=== PATIENT | female | born 2000 | race African-American/Black ===

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

== ENCOUNTER 2019-01-09 18:47 | Observation (INO) | payer OTHER ==
[2019-01-09] MEDS ORDERED: IV RINGERS,LACTATED 1000ML 1,000 ML IV SCH (18:59)
[2019-01-09 19:10] LABS: BILIRUBIN,URINE NEGATIVE (NEG); CLARITY,URINE CLOUDY; COLOR,URINE YELLOW; NITRITE,URINE NEGATIVE (NEG); PH,URINE 6.5; PROTEIN,URINE NEGATIVE (NEG-TRACE)
[2019-01-09 19:19] LABS: BACTERIA,URINE FEW /HPF (0-FEW); RBC,URINE 0 /HPF (0-2); SQUAMOUS EPITHELIAL CELL,UR MOD /LPF; WBC,URINE >40 /HPF (0-4)
[2019-01-09 19:20] LABS: BARBITURATES NEG (NEG); BENZODIAZEPINES NEG (NEG); CANNABINOIDS NEG (NEG); COCAINE NEG (NEG); METHADONE NEG (NEG); OPIATES NEG (NEG); PHENCYCLIDINE NEG (NEG)
[2019-01-09 19:27] LABS: AMPHETAMINE/METHAMPHETAMINE NEG (NEG)
== END 2019-01-09 20:00 | disposition home or self-care (01) ==
LOC: 3 SO LND 18:47
PROVIDERS: ADMIT Specialist; ATTEND Specialist
DX: O26.893 Other specified pregnancy related conditions, third trimester (principal); R19.7 Diarrhea, unspecified; R10.30 Lower abdominal pain, unspecified; Z3A.37 37 weeks gestation of pregnancy
CPT/HCPCS: 80307; 81001; 87086; G0379

== ENCOUNTER 2019-01-27 12:14 | Inpatient (IN) | payer OTHER ==
[~2019-01-27] VITALS: Ht 162.6 cm; Wt 84.8 kg
[2019-01-27] MEDS ORDERED: ZOLPIDEM 5 MG TABLET. PO PRN (12:30)
[2019-01-27] MEDS ORDERED: ONDANSETRON PF 4 MG/2 ML VIAL. IV PRN (12:30)
[2019-01-27] MEDS ORDERED: BUTORPHANOL 2 MG/ML VIAL. IV PRN (12:30)
[2019-01-27] MEDS ORDERED: DOCUSATE SODIUM 283 MG/5 ML ENEMA. PR PRN (12:30)
[2019-01-27] MEDS ORDERED: OXYTOCIN 30 UNIT/500 ML PREMIX 500 ML IV PRN (12:30)
[2019-01-27] MEDS ORDERED: LIDOCAINE 1% PF 30 ML VIAL. INJ PRN (12:30)
[2019-01-27] MEDS ORDERED: CITRIC ACID/SODIUM CITRATE 30 ML SOLUTION. PO PRN (12:30)
[2019-01-27] MEDS ORDERED: TERBUTALINE 1 MG/ML VIAL. SQ PRN (12:30)
[2019-01-27] MEDS ORDERED: fentaNYL PF VIAL 100 MCG/2 ML VIAL IV PRN (12:30)
[2019-01-27] MEDS ORDERED: 0.9 % SODIUM CHLORIDE 10 ML DISP.SYRIN. IV PRN (12:30)
[2019-01-27] MEDS ORDERED: ACETAMINOPHEN 325 MG TABLET. PO PRN (12:30)
[2019-01-27] MEDS ORDERED: DINOPROSTONE 10 MG SUPP.VAG VG ONE (12:30)
[2019-01-27] MEDS ORDERED: AMPICILLIN SODIUM 2 GM in IV NORMAL SALINE 100ML 100 ML IV ONE (12:30)
[2019-01-27 13:00] VITALS: BP 142/89
[2019-01-27 13:22] LABS: BASO % 0 % (0-3); EOS % 0 % (0-3); HEMATOCRIT 35.6 % (36.0-47.0); HEMOGLOBIN 11.2 g/dL (12.0-15.5); LYMPH # 1.8 x10^3/uL (1.0-4.8); LYMPH % 25 % (24-48); MEAN CORPUSCULAR HEMOGLOBIN 24 pg (25-35); MEAN CORPUSCULAR HGB CONC 31 g/dL (31-37); MEAN CORPUSCULAR VOLUME 76 fL (79-100); MONO # 0.6 x10^3/uL (0.0-1.1); MONO % 8 % (0-9); NEUT # 4.8 x10^3uL (1.8-7.7); NEUT % 67 % (31-73); PLATELET COUNT 134 x10^3/uL (140-400); RED BLOOD COUNT 4.66 x10^6/uL (3.50-5.40); WHITE BLOOD COUNT 7.2 x10^3/uL (4.0-11.0)
[2019-01-27 13:25] LABS: BILIRUBIN,URINE NEGATIVE (NEG); CLARITY,URINE CLEAR; COLOR,URINE YELLOW; NITRITE,URINE NEGATIVE (NEG); PROTEIN,URINE NEGATIVE (NEG-TRACE)
[2019-01-27 13:32] LABS: SQUAMOUS EPITHELIAL CELL,UR MANY /LPF
[2019-01-27 13:33] LABS: BACTERIA,URINE MODERATE /HPF (0-FEW)
[2019-01-27 13:34] LABS: YEAST,URINE PRESENT /HPF
[2019-01-27 13:35] LABS: CREATININE,RANDOM URINE 110.5 mg/dL (Not Establ.); RBC,URINE OCC /HPF (0-2)
[2019-01-27 13:43] LABS: ALBUMIN 2.8 g/dL (3.4-5.0); ALBUMIN/GLOBULIN RATIO 0.6 (1.0-1.7); CALCIUM 8.9 mg/dL (8.5-10.1); CREATININE 0.9 mg/dL (0.6-1.0); GFR 97.6; POTASSIUM 3.7 mmol/L (3.5-5.1); TOTAL BILIRUBIN 0.3 mg/dL (0.2-1.0); TOTAL PROTEIN 7.6 g/dL (6.4-8.2); URIC ACID 6.2 mg/dL (2.6-6.0)
[2019-01-27] MEDS ORDERED: AMPICILLIN SODIUM 1 GM in IV NORMAL SALINE 50ML 50 ML IV SCH (17:00)
[2019-01-27] MEDS: IV RINGERS,LACTATED 1000ML 1,000 ML IV SCH ×2 (17:23→21:43)
[2019-01-28] MEDS ORDERED: OXYTOCIN 30 UNIT/500 ML PREMIX 500 ML IV PRN ×2 (06:00→11:45)
[2019-01-28] MEDS: IV RINGERS,LACTATED 1000ML 1,000 ML IV SCH (09:52)
--- NOTE | 2019-01-28 11:39 | PDOC1 ---
OB - History Hx of Present Care: Good Care Ultrasounds: Normal mid trimester US Obstetrical Complications: Gestational Hypertension Medical Complications: None Past Family/Social History * Past Medical, Surgical, Family and Obstetric Histories reviewed from chart. Rubella: Immune RPR/VDRL: Negative GBS Status: Positive HBsAG: Negative OB - Chief Complaint & HPI Date of Admission: Date of Admission: Jan 27, 2019 at 12:14 Chief Complaint/History : 1 Para: 0 EGA: 40 Reason for admission: induction of labor Indication for induction: other (gestational HTN) Admission Nurse Assessment Rev: Yes OB - Admission Exam Physical Exam Vitals: VS - Last 72 Hours, by Label Date Time Temp Pulse Resp B/P (MAP) Pulse Ox O2 Delivery O2 Flow Rate FiO2 01/28/19 10:27 16 Room Air 01/27/19 13:00 97.8 90 20 142/89 (106) 97.8 HEENT: Normal Heart: Regular Rate Lungs: Clear Abdomen: Gravid, Non tender, Soft Extremities: Edema Reflexes: Normal Cervical Dilatation: 1cm Effacement: 50% Station: -3 Membranes: Intact Heart Rate: Normal Accelerations: Accelerations Present Decelerations: No decelerations Contractions on Admission: None Text A: 40 wks IUP Gestational HTN IOL GBS positive P: Admit for IOL cervidil, then pitocin. Start Ampicillin. TAMMY DOS SANTOS Jr, MD Jan 28, 2019 11:39
--- NOTE | 2019-01-28 11:41 | PDOC ---
VAGINAL DELIVERY DATE DATE: 01/28/19 TIME: 11:40 : 1 Para: 1 EGA: 40 VAGINAL DELIVERY: VTX VACCUM ASSISTED: No PLACENTA: Spontaneous 8/8 SEX: Male WEIGHT Weight [ 3200 gm] Nuchal Cord: Yes, Times 1 Amniotic Fluid: Thick Meconium PAIN: Natural EPISIOTOMY: No EXTENSION: Yes (bilateral labial laceration) REPAIRED WITH 3-0 chromic EBL 300 ml COMPLICATIONS none CONDITION pt. stable Signs of Intrauterine Infectio: None Shoulder Dystocia: No TAMMY DOS SANTOS Jr, MD Jan 28, 2019 11:41
[2019-01-28] MEDS ORDERED: MAG HYDROX/ALUMINUM HYD/SIMETH 30 ML ORAL.SUSP PO PRN (11:45)
[2019-01-28] MEDS ORDERED: IBUPROFEN 400 MG TABLET. PO PRN (11:45)
[2019-01-28] MEDS ORDERED: MMR per PROTOCOL. MC PRN (11:45)
[2019-01-28] MEDS ORDERED: ACETAMINOPHEN 325 MG TABLET. PO PRN (11:45)
[2019-01-28] MEDS ORDERED: MAGNESIUM HYDROXIDE 2,400 MG/30 ML ORAL.SUSP. PO PRN (11:45)
[2019-01-28] MEDS ORDERED: SIMETHICONE 80 MG TAB.CHEW PO PRN (11:45)
[2019-01-28] MEDS ORDERED: BENZOCAINE 20% TOPICAL AEROSOL SPRAY 57GM CAN. TP PRN (11:45)
[2019-01-28] MEDS ORDERED: PHENYLEPH/MINERAL OIL/PETROLAT RECTAL OINTMENT 28GM TUBE. RC PRN (11:45)
[2019-01-28] MEDS ORDERED: oxyCODONE/APAP 5/325 1 TAB TABLET PO PRN (11:45)
[2019-01-28] MEDS ORDERED: diphenhydrAMINE HCL 25 MG CAPSULE PO PRN (11:45)
[2019-01-28] MEDS ORDERED: 0.9 % SODIUM CHLORIDE 10 ML DISP.SYRIN. IV PRN (11:45)
[2019-01-28] MEDS ORDERED: HYDROCORTISONE 1% TOPICAL OINTMENT 30GM TUBE. TP PRN (11:45)
[2019-01-28] MEDS ORDERED: ZOLPIDEM 5 MG TABLET. PO PRN (11:45)
[2019-01-28 14:00] VITALS: BP 135/74
[2019-01-28 23:05] VITALS: BP 103/64
[2019-01-29 04:15] LABS: BASO % 0 % (0-3); EOS % 0 % (0-3); HEMATOCRIT 33.8 % (36.0-47.0); HEMOGLOBIN 10.5 g/dL (12.0-15.5); LYMPH # 3.4 x10^3/uL (1.0-4.8); LYMPH % 23 % (24-48); MEAN CORPUSCULAR HEMOGLOBIN 24 pg (25-35); MEAN CORPUSCULAR HGB CONC 31 g/dL (31-37); MEAN CORPUSCULAR VOLUME 77 fL (79-100); MONO # 1.5 x10^3/uL (0.0-1.1); MONO % 10 % (0-9); NEUT # 9.8 x10^3uL (1.8-7.7); NEUT % 67 % (31-73); PLATELET COUNT 120 x10^3/uL (140-400); RED BLOOD COUNT 4.38 x10^6/uL (3.50-5.40); RED CELL DISTRIBUTION WIDTH 17.2 % (11.5-14.5); WHITE BLOOD COUNT 14.6 x10^3/uL (4.0-11.0)
[2019-01-29 06:23] VITALS: BP 117/80
--- NOTE | 2019-01-29 07:50 | PDOC3 ---
OB DISCHARGE SUMMARY DATE OF ADMISSION: 01/27/19 DATE OF DISCHARGE: 01/29/19 REASON FOR ADMISSION: Spontaneous aboration PROCEDURES: Ultrasound INTRAPARTUM PROCEDURES: Curettage PROCEDURES: Antibiotics, HCT, HGB HOSPITAL COURSE Unremarkable CONDITION AT DISCHARGE Stable JARETT BALLESTEROS MD Jan 29, 2019 07:50
[2019-01-29] MEDS ORDERED: HYDR-3164 PO (07:52)
[2019-01-29] MEDS ORDERED: NAPR-514 PO (07:52)
[2019-01-29] MEDS ORDERED: FERROUS SULFATE 325 MG TABLET. PO SCH (08:00)
--- NOTE | 2019-01-29 09:53 | NUR ---
dc patient tomorrow 4-11 to see in one week
[2019-01-29 10:13] VITALS: BP 115/81
[2019-01-29] MEDS: DOCUSATE SODIUM 100 MG CAPSULE. PO PRN ×2 (10:20→23:41)
[2019-01-29] MEDS: IBUPROFEN 400 MG TABLET. PO PRN ×2 (10:21→23:40)
--- NOTE | 2019-01-29 13:30 | NUR ---
FACULTY CO-SIGN I have reviewed the documentation by skilled nursing facility counselor:Dnaiela Bertrand
--- NOTE | 2019-01-29 13:52 | NUR ---
SS following up with referral regarding "18 year old who lives with maternal grandmother's ex-boyfriend. The father of baby is in correctional facility. Mom and grandmother seem to have good relationship. Not sure why infants mother does not live with her mother. Concerned about infants mother taking a new baby home to live with an older man." SS met with infants mother to assess circumstances surrounding the referral. Infants mother reported that she just moved to [place] in September of 2018 from [place]. Infants mother reported that her mother and papa live here. She reported that she was using the walk in clinic in [place] for appointments prior to moving to [place]. Infants mother reported that her papa has been a part of there family for a long time and is like a father figure to her. She reported that he has extra room in his home providing her and with rooms of there own. She reported no concerns with her living situation. Infants mother reported that when she moved here she made sure that her Medicaid was in place and began to see Dr. Nguyễn. Infants mother reported that she receives good emotional and financial support from her mother and papa. 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 Infants mother reported that she already has a car seat in her car and has all needed infant supplies for infant with exception to a breast pump and baby bath tub. Infants mother requested information on WIC and pediatricians in the [place] area. SS provided infants mother with contact information for WIC and recommended that she contact them to make an appointment today. SS provided information on [facility]. Infants mother reported that she would like assistance with setting up well baby appointment at [facility] prior to leaving the hospital. RN notified. Pt agreed to [facility] referral for assistance with housing and WIC. SS phoned and faxed referral. Infants mother appeared to be bonding well with infants while SS was in room. Infants mother denied any history of behavioral health or substance use. No concerns noted at this time. and mother RN notified.
[2019-01-29 14:31] VITALS: BP 119/76
[2019-01-29 22:00] VITALS: BP 96/75
[2019-01-30 06:00] VITALS: BP 94/72
--- NOTE | 2019-01-30 08:43 | PDOC ---
Provider Note Provider Note Doing well VSS Uterus NTTP FU in AM JARETT BALLESTEROS MD Jan 30, 2019 08:43
--- NOTE | 2019-01-30 08:45 | PDOC3 ---
OB DISCHARGE SUMMARY DATE OF ADMISSION: 01/27/19 DATE OF DISCHARGE: 01/30/19 REASON FOR ADMISSION: Induction of labor PROCEDURES: Ultrasound INTRAPARTUM PROCEDURES: Spontanous Vag Deliv PROCEDURES: None OPERATIONS: None DISCHARGE DIAGNOSIS: Term Delivered DISCHARGE INFORMATION: Activity, Diet HOSPITAL COURSE Unremarkable CONDITION AT DISCHARGE Stable JARETT BALLESTEROS MD Jan 30, 2019 08:45
[2019-01-30 12:10] VITALS: BP 101/74
== END 2019-01-30 14:28 | disposition home or self-care (01) | DRG 807 ==
LOC: 3 SO LND 12:14 → 3 NORTH 01-28 14:25
PROVIDERS: ADMIT Specialist; ATTEND Specialist
PROC: 10E0XZZ Delivery of Products of Conception, External Approach (ICD-10-PCS; principal; 2019-01-28)
PROC: 0UQMXZZ Repair Vulva, External Approach (ICD-10-PCS; 2019-01-28)
PROC: 3E033VJ Introduction of Other Hormone into Peripheral Vein, Percutaneous Approach (ICD-10-PCS; 2019-01-28)
PROC: 3E0P7VZ Introduction of Hormone into Female Reproductive, Via Natural or Artificial Opening (ICD-10-PCS; 2019-01-28)
DX: O13.4 Gestational [pregnancy-induced] hypertension without significant proteinuria, complicating childbirth (principal); Z37.0 Single live birth; O99.824 Streptococcus B carrier state complicating childbirth; O69.81X0 Labor and delivery complicated by cord around neck, without compression, not applicable or unspecified; O77.0 Labor and delivery complicated by meconium in amniotic fluid; O70.0 First degree perineal laceration during delivery; Z3A.40 40 weeks gestation of pregnancy
CPT/HCPCS: 36415; 80053; 81001; 82570; 83615; 84156; 84550; 85025; 86850; 86900; 86901; 87086; J0290; J2590; J3010; J7120

== ENCOUNTER 2019-12-04 15:11 | Emergency (ER) | payer SELFPAY ==
[~2019-12-04] VITALS: Ht 160 cm; Wt 75.0 kg
[~2019-12-04 15:11] MED LIST: HYDR-3164 PO; NAPR-514 PO
[2019-12-04 15:42] LABS: BILIRUBIN,URINE NEGATIVE (NEG); CLARITY,URINE CLEAR; COLOR,URINE YELLOW; NITRITE,URINE NEGATIVE (NEG); PROTEIN,URINE NEGATIVE (NEG-TRACE); UROBILINOGEN,URINE 0.2 mg/dL (0.2 mg/dL)
[2019-12-04 15:48] LABS: BACTERIA,URINE FEW /HPF (0-FEW); SQUAMOUS EPITHELIAL CELL,UR MANY /LPF; WBC,URINE OCC /HPF (0-4)
[2019-12-04 15:55] LABS: BARBITURATES NEG (NEG); BENZODIAZEPINES NEG (NEG); CANNABINOIDS NEG (NEG); COCAINE NEG (NEG); METHADONE NEG (NEG); OPIATES NEG (NEG); PHENCYCLIDINE NEG (NEG)
[2019-12-04 16:09] LABS: AMPHETAMINE/METHAMPHETAMINE NEG (NEG)
--- NOTE | 2019-12-04 16:17 | PHYS DOC ---
Past Medical History Past Medical History: No Pertinent History Past Surgical History: No Surgical History Smoking Status: Never Smoker Alcohol Use: None Adult General Chief Complaint Chief Complaint: VAGINAL BLEEDING HPI HPI Patient is a 19 year old female 2 para 1 currently presenting to the ED today complaining of vaginal bleeding in that began on Sunday. Patient reports she had done a home test on Sunday which was positive. Her last menstrual cycle was the beginning of October 2019. She reports she was seen at [facility] 2 days ago where they did lab work and she was informed her test was barely positive. She states they did an ultrasound and she was told she had ovarian cysts but they could not see any IUP because it was too early. She states she was not given the exam number for her beta hCG. She reports she is not having to use any feminine pads but she's noted the bleeding has increased since Sunday to today where she is seeing more dark blood. Denies any abdominal cramping/pain, denies any back pain. Review of Systems Review of Systems Constitutional: Denies fever or chills [] Eyes: Denies change in visual acuity, redness, or eye pain [] HENT: Denies nasal congestion or sore throat [] Respiratory: Denies cough or shortness of breath [] Cardiovascular: No additional information not addressed in HPI [] GI: Reports vaginal bleeding in . Denies abdominal pain, nausea, vomiting, bloody stools or diarrhea [] : Denies dysuria or hematuria [] Musculoskeletal: Denies back pain or joint pain [] Integument: Denies rash or skin lesions [] Neurologic: Denies headache, focal weakness or sensory changes [] All other systems were reviewed and found to be within normal limits, except as documented in this note. Allergies Allergies Allergies Coded Allergies Type Severity Reaction Last Updated Verified No Known Drug Allergies 10/19/18 No Physical Exam Physical Exam Constitutional: Well developed, well nourished, no acute distress, non-toxic appearance. [] HENT: Normocephalic, atraumatic, bilateral external ears normal, oropharynx moist, no oral exudates, nose normal. [] Eyes: PERRLA, EOMI, conjunctiva normal, no discharge. [] Neck: Normal range of motion, no tenderness, supple, no stridor. [] Cardiovascular:Heart rate regular rhythm, no murmur [] Lungs & Thorax: Bilateral breath sounds clear to auscultation [] Abdomen: Bowel sounds normal, soft, no tenderness, no masses, no pulsatile masses. [] Pelvic exam External pelvic appears normal, cervix is visualized, small amount of bright red blood coming through the cervical OS, no adnexal tenderness, no CMT. Skin: Warm, dry, no erythema, no rash. [] Back: No tenderness, no CVA tenderness. [] Extremities: No tenderness, no cyanosis, no clubbing, ROM intact, no edema. [] Neurologic: Alert and oriented X 3, normal motor function, normal sensory function, no focal deficits noted. [] Psychologic: Affect normal, judgement normal, mood normal. [] Current Patient Data Vital Signs Vital Signs Date Time Temp Pulse Resp B/P (MAP) Pulse Ox O2 Delivery O2 Flow Rate FiO2 12/04/19 15:21 98.4 73 16 122/59 (80) 98 Room Air 98.4 Lab Values Laboratory Tests Test 12/04/19 15:25 12/04/19 15:30 12/04/19 16:05 Urine Collection Type Void Urine Color Yellow Urine Clarity Clear Urine pH 5.0 Urine Specific Pax 1.025 Urine Protein Negative mg/dL (NEG-TRACE) Urine Glucose (UA) Negative mg/dL (NEG) Urine Ketones (Stick) Negative mg/dL (NEG) Urine Blood Large (NEG) Urine Nitrite Negative (NEG) Urine Bilirubin Negative (NEG) Urine Urobilinogen Dipstick 0.2 mg/dL (0.2 mg/dL) Urine Leukocyte Esterase Negative (NEG) Urine RBC 11-20 /HPF (0-2) Urine WBC Occ /HPF (0-4) Urine Squamous Epithelial Cells Many /LPF Urine Bacteria Few /HPF (0-FEW) Urine Mucus Marked /LPF Urine Opiates Screen Neg (NEG) Urine Methadone Screen Neg (NEG) Urine Barbiturates Neg (NEG) Urine Phencyclidine Screen Neg (NEG) Urine Amphetamine/Methamphetamine Neg (NEG) Urine Benzodiazepines Screen Neg (NEG) Urine Cocaine Screen Neg (NEG) Urine Cannabinoids Screen Neg (NEG) Urine Ethyl Alcohol Neg (NEG) POC Urine HCG, Qualitative Hcg positive (Negative) White Blood Count 5.2 x10^3/uL (4.0-11.0) Red Blood Count 4.64 x10^6/uL (3.50-5.40) Hemoglobin 12.0 g/dL (12.0-15.5) Hematocrit 37.4 % (36.0-47.0) Mean Corpuscular Volume 81 fL (79-100) Mean Corpuscular Hemoglobin 26 pg (25-35) Mean Corpuscular Hemoglobin Concent 32 g/dL (31-37) Red Cell Distribution Width 15.5 % (11.5-14.5) H Platelet Count 220 x10^3/uL (140-400) Neutrophils (%) (Auto) 35 % (31-73) Lymphocytes (%) (Auto) 57 % (24-48) H Monocytes (%) (Auto) 5 % (0-9) Eosinophils (%) (Auto) 2 % (0-3) Basophils (%) (Auto) 1 % (0-3) Neutrophils # (Auto) 1.8 x10^3/uL (1.8-7.7) Lymphocytes # (Auto) 2.9 x10^3/uL (1.0-4.8) Monocytes # (Auto) 0.3 x10^3/uL (0.0-1.1) Eosinophils # (Auto) 0.1 x10^3/uL (0.0-0.7) Basophils # (Auto) 0.0 x10^3/uL (0.0-0.2) Maternal Serum HCG Beta Subunit 42 mIU/mL (0-5) H Sodium Level 138 mmol/L (136-145) Potassium Level 3.7 mmol/L (3.5-5.1) Chloride Level 101 mmol/L (98-107) Carbon Dioxide Level 28 mmol/L (21-32) Anion Gap 9 (6-14) Blood Urea Nitrogen 14 mg/dL (7-20) Creatinine 0.6 mg/dL (0.6-1.0) Estimated GFR (Cockcroft-Gault) 154.2 BUN/Creatinine Ratio 23 (6-20) H Glucose Level 85 mg/dL (70-99) Calcium Level 9.4 mg/dL (8.5-10.1) Total Bilirubin 0.1 mg/dL (0.2-1.0) L Aspartate Amino Transferase (AST) 11 U/L (15-37) L Alanine Aminotransferase (ALT) 9 U/L (14-59) L Alkaline Phosphatase 85 U/L (46-116) Total Protein 8.2 g/dL (6.4-8.2) Albumin 3.9 g/dL (3.4-5.0) Albumin/Globulin Ratio 0.9 (1.0-1.7) L Ethyl Alcohol Level < 10 mg/dL (0-10) Laboratory Tests 12/04/19 16:05 Laboratory Tests 12/04/19 16:05 Microbiology 12/04/19 Wet Prep - Final, Complete EKG EKG [] Radiology/Procedures Radiology/Procedures []PROCEDURE: OB <14 WKS W/TV Transabdominal and transvaginal sonography of the pelvis-OB ultrasound study less than 14 weeks Clinical indications: Positive test. Vaginal bleeding. Transabdominal sonography: The uterus is retroverted and is not well visualized as a result. Neither ovary is visualized. Therefore, transvaginal sonography will be performed. No adnexal mass is seen. Free fluid is seen. Transvaginal sonography: The uterus is retroverted. The longitudinal and AP and transverse dimensions of the uterus are 7.0 cm and 4.2 cm and 4.8 cm respectively. The endometrial canal is mildly thickened and echogenic consistent with state but no gestational sac or yolk sac or pole or heartbeat is seen. No uterine mass or fibroid is seen. There is a mild to moderate amount of free fluid within the cul-de-sac. The left ovary measures 4.6 cm and 3.2 cm and 3.1 cm in size and contains a 3.2 cm complex cyst which most likely is a corpus luteum cyst with a cumulus oophorus. Color Doppler flow is seen within the left ovary. The right ovary is normal and measures 3.2 cm and 1.9 cm and 1.7 cm in size. Color Doppler flow is seen within the right ovary. IMPRESSION: No intrauterine is seen at this point in time. Recommend correlation with quantitative beta-hCG studies. An ectopic has not been excluded. There is a small to moderate amount of free fluid within the cul-de-sac. 3.2 cm corpus luteum cyst of the left ovary. Electronically signed by: Vianca Flood MD (12/04/2019 4:15 PM) [facility] DICTATED and SIGNED BY: VIANCA FLOOD MD DATE: 12/04/19 3084 Course & Med Decision Making Course & Med Decision Making Pertinent Labs and Imaging studies reviewed. (See chart for details) This is a 19-year-old female female patient 2 para 1 presenting to the ED today with vaginal bleeding in . See history of present illness. On pelvic exam patient had small amount of bleeding. Positive urine hCG, urine analysis is negative for infection. Beta hCG 42, CBC with a normal WBC, normal hemoglobin and hematocrit. CMP with no acute findings. Wet prep noted for BV discharged with Flagyl. Blood group B+ OB ultrasound no intrauterine beta hcg series recommended for f/u. An ectopic has not been excluded. There is a small to moderate amount of free fluid within the cul-de-sac. 3.2 cm corpus luteum cyst of the left ovary. Above ultrasound results were discussed with Dr. Nichols ECD. She requested patient to be on bedrest, follow up with an ECD in 2 days and have a repeat beta hCG as well as ultrasound. Dragon Disclaimer Dragon Disclaimer This electronic medical record was generated, in whole or in part, using a voice recognition dictation system. Departure Departure Impression: Primary Impression: Threatened miscarriage Additional Impression: Bacterial vaginosis Disposition: 01 HOME, SELF-CARE Condition: STABLE Referrals: NO PCP (PCP) SANTOS WING MD follow up in 2 days. Call her office tomorrow afternoon and set up a follow up appointment Patient Instructions: Bacterial Vaginosis, Threatened Miscarriage, [id number] Additional Instructions: You were evaluated in the emergency room for vaginal bleeding in . Your beta hCG is 42. This is low. Your OB ultrasound was unable to find an intrauterine though this could happen in early . You also have bacterial vaginosis, we put you on Flagyl, ensure you complete it. Please contact your own ECD or the provided ECD tomorrow afternoon and set up a follow-up appointment as an outpatient. They need to repeat your ultrasound and your beta hCG. Please come back to the emergency room at any point symptoms worsen. Please maintain bedrest, this includes no strenuous activity, no sexual intercourse, no heavy lifting, this should be maintained until seen by the ECD. Please come back to the emergency room at any point symptoms worsen. Scripts Metronidazole (FLAGYL) 500 Mg Tablet 1 TAB PO BID, #14 TAB Prov: CHERYL CATHERINE APRN 12/04/19 Problem Qualifiers CHERYL CATHERINE APRN Dec 04, 2019 16:17
[2019-12-04 16:22] LABS: BASO % 1 % (0-3); EOS # 0.1 x10^3/uL (0.0-0.7); EOS % 2 % (0-3); HEMATOCRIT 37.4 % (36.0-47.0); LYMPH # 2.9 x10^3/uL (1.0-4.8); LYMPH % 57 % (24-48); MEAN CORPUSCULAR HEMOGLOBIN 26 pg (25-35); MEAN CORPUSCULAR HGB CONC 32 g/dL (31-37); MEAN CORPUSCULAR VOLUME 81 fL (79-100); MONO # 0.3 x10^3/uL (0.0-1.1); MONO % 5 % (0-9); NEUT # 1.8 x10^3/uL (1.8-7.7); NEUT % 35 % (31-73); PLATELET COUNT 220 x10^3/uL (140-400); RED BLOOD COUNT 4.64 x10^6/uL (3.50-5.40); RED CELL DISTRIBUTION WIDTH 15.5 % (11.5-14.5); WHITE BLOOD COUNT 5.2 x10^3/uL (4.0-11.0)
[2019-12-04 16:40] LABS: CALCIUM 9.4 mg/dL (8.5-10.1); CREATININE 0.6 mg/dL (0.6-1.0); GFR 154.2; POTASSIUM 3.7 mmol/L (3.5-5.1)
[2019-12-04 16:46] LABS: ALBUMIN 3.9 g/dL (3.4-5.0); ALBUMIN/GLOBULIN RATIO 0.9 (1.0-1.7); TOTAL BILIRUBIN 0.1 mg/dL (0.2-1.0); TOTAL PROTEIN 8.2 g/dL (6.4-8.2)
[2019-12-04 17:33] VITALS: BP 115/73
[2019-12-04] MEDS ORDERED: METR500T PO (17:43)
[2019-12-05 19:09] LABS: GC PROBE Negative (Negative)
== END 2019-12-04 17:55 | disposition home or self-care (01) ==
LOC: ER 15:11
DX: O20.0 Threatened abortion (principal); O23.591 Infection of other part of genital tract in pregnancy, first trimester; Z3A.01 Less than 8 weeks gestation of pregnancy
CPT/HCPCS: 36415; 76801; 76817; 80053; 80307; 81001; 81025; 84702; 85025; 86850; 86900; 86901; 87491; 87591; 99285; G0480; Q0111

== ENCOUNTER 2019-12-06 08:10 | Emergency (ER) | payer SELFPAY ==
[~2019-12-06] VITALS: Ht 160 cm; Wt 75.0 kg
[~2019-12-06 08:10] MED LIST changes: +METR500T PO
[2019-12-06 08:20] VITALS: BP 121/74
[2019-12-06] MEDS ORDERED: ACETAMINOPHEN 500 MG TABLET PO ONE (08:30)
[2019-12-06 08:51] LABS: BASO % 1 % (0-3); EOS # 0.1 x10^3/uL (0.0-0.7); EOS % 3 % (0-3); HEMATOCRIT 36.5 % (36.0-47.0); HEMOGLOBIN 11.7 g/dL (12.0-15.5); LYMPH # 1.9 x10^3/uL (1.0-4.8); LYMPH % 44 % (24-48); MEAN CORPUSCULAR HEMOGLOBIN 26 pg (25-35); MEAN CORPUSCULAR HGB CONC 32 g/dL (31-37); MEAN CORPUSCULAR VOLUME 80 fL (79-100); MONO # 0.3 x10^3/uL (0.0-1.1); MONO % 7 % (0-9); NEUT # 1.9 x10^3/uL (1.8-7.7); NEUT % 46 % (31-73); PLATELET COUNT 196 x10^3/uL (140-400); RED BLOOD COUNT 4.54 x10^6/uL (3.50-5.40); RED CELL DISTRIBUTION WIDTH 15.3 % (11.5-14.5); WHITE BLOOD COUNT 4.2 x10^3/uL (4.0-11.0)
[2019-12-06] MEDS ORDERED: KETOROLAC 30 MG/ML VIAL. IM ONE (09:45)
--- NOTE | 2019-12-06 10:29 | PHYS DOC ---
Past Medical History Past Medical History: No Pertinent History Past Surgical History: No Surgical History Smoking Status: Never Smoker Alcohol Use: None Adult General Chief Complaint Chief Complaint: VAGINAL BLEEDING HPI HPI Patient is a 19 year old female presenting with vaginal bleeding she woke up she had some bleeding on her sheets last night she didn't wear pad overnight she is not sure how much worse she is having abdominal pain, cramping pain dull she was seen here couple days ago rate of 42 last menstrual period first week of October she had been seen at [facility] 2 days before that. She has an appointment with OB on Sunday but she was having more pain and bleeding so she came back in to be checked out. Review of Systems Review of Systems Musculoskeletal: Denies back pain or joint pain [] Integument: Denies rash or skin lesions [] Neurologic: Denies headache, focal weakness or sensory changes [] Endocrine: Denies polyuria or polydipsia [] All other systems were reviewed and found to be within normal limits, except as documented in this note. Current Medications Current Medications Current Medications Medications (Trade) Dose Ordered Sig/Charity Start Time Stop Time Status Last Admin Dose Admin Acetaminophen (Tylenol) 1,000 mg 1X ONCE 12/06/19 08:30 12/06/19 08:32 DC 12/06/19 09:12 1,000 MG Ketorolac Tromethamine (Toradol 30mg Vial) 30 mg 1X ONCE 12/06/19 09:45 12/06/19 09:46 DC 12/06/19 10:18 30 MG Allergies Allergies Allergies Coded Allergies Type Severity Reaction Last Updated Verified No Known Drug Allergies 10/19/18 No Physical Exam Physical Exam Constitutional: Well developed, well nourished, no acute distress, non-toxic appearance. [] HENT: Normocephalic, atraumatic, bilateral external ears normal, oropharynx mo ist, no oral exudates, nose normal. [] Eyes: PERRLA, EOMI, conjunctiva normal, no discharge. [] Neck: Normal range of motion, no tenderness, supple, no stridor. [] Pulmonary: Normal respiratory effort no increased work of breathing no obvious chest wall trauma Abdomen: Bowel sounds normal, soft, no tenderness, no masses, no pulsatile masses. [] Skin: Warm, dry, no erythema, no rash. [] Back: No tenderness, no CVA tenderness. [] Extremities: No tenderness, no cyanosis, no clubbing, ROM intact, no edema. [] Neurologic: Alert and oriented X 3, normal motor function, normal sensory function, no focal deficits noted. [] Psychologic: Affect normal, judgement normal, mood normal. [] Current Patient Data Lab Values Laboratory Tests Test 12/06/19 08:25 12/06/19 08:43 POC Urine HCG, Qualitative Hcg positive (Negative) White Blood Count 4.2 x10^3/uL (4.0-11.0) Red Blood Count 4.54 x10^6/uL (3.50-5.40) Hemoglobin 11.7 g/dL (12.0-15.5) L Hematocrit 36.5 % (36.0-47.0) Mean Corpuscular Volume 80 fL (79-100) Mean Corpuscular Hemoglobin 26 pg (25-35) Mean Corpuscular Hemoglobin Concent 32 g/dL (31-37) Red Cell Distribution Width 15.3 % (11.5-14.5) H Platelet Count 196 x10^3/uL (140-400) Neutrophils (%) (Auto) 46 % (31-73) Lymphocytes (%) (Auto) 44 % (24-48) Monocytes (%) (Auto) 7 % (0-9) Eosinophils (%) (Auto) 3 % (0-3) Basophils (%) (Auto) 1 % (0-3) Neutrophils # (Auto) 1.9 x10^3/uL (1.8-7.7) Lymphocytes # (Auto) 1.9 x10^3/uL (1.0-4.8) Monocytes # (Auto) 0.3 x10^3/uL (0.0-1.1) Eosinophils # (Auto) 0.1 x10^3/uL (0.0-0.7) Basophils # (Auto) 0.0 x10^3/uL (0.0-0.2) Maternal Serum HCG Beta Subunit 20 mIU/mL (0-5) H Laboratory Tests 12/06/19 08:43 EKG EKG [] Radiology/Procedures Radiology/Procedures [] Course & Med Decision Making Course & Med Decision Making Pertinent Labs and Imaging studies reviewed. (See chart for details) []Beta is down to a 20 FROM 42 I strongly suspect a completing miscarriage patient remains stable in the emergency room we did give some Toradol after I saw the downtrending beta. I did recommend that she continue her appointment with OB on Sunday for continued follow-up. I don't think there is any benefit to repeating an ultrasound now with such a low number. She is agreeable and prefers that 2. Pelvic exam he has already been done a couple of days ago no need to repeat right now. Vital signs normal see nurse's note Dragon Disclaimer Dragon Disclaimer This electronic medical record was generated, in whole or in part, using a voice recognition dictation system. Departure Departure Impression: Primary Impression: Threatened miscarriage Disposition: HOME, SELF-CARE Condition: STABLE Referrals: NO PCP (PCP) Patient Instructions: Miscarriage, [id number] REGINALDO LEES MD Dec 06, 2019 10:29
== END 2019-12-06 10:00 | disposition home or self-care (01) ==
LOC: ER 08:10
DX: O20.0 Threatened abortion (principal); Z3A.01 Less than 8 weeks gestation of pregnancy
CPT/HCPCS: 36415; 81025; 84702; 85025; 96372; 99283; J1885